=== PATIENT | female | born 1990 | race African-American/Black ===

== ENCOUNTER 2016-10-08 22:56 | Emergency (ER) | payer MEDICAID, OTHER ==
[~2016-10-08 22:56] MED LIST: MACR100C2 PO; PRENTAB44 PO
[2016-10-08 23:30] VITALS: TEMP 97.8
--- NOTE | 2016-10-08 23:50 | PD ---
HPI Chief Complaint spotting Date Seen: Oct 08, 2016 Travel History International Travel<30 Days: No Contact w/Intl Traveler<30Days: No History of Present Illness HPI Patient is a 26 year old at 21-0/7 weeks gestation who presents today for spotting. She noticed several small drops of bright red blood when wiping. She has also had a whitish discharge for the past several weeks but denies any vaginal itching or pain. She denies any gush or leaking of fluid. No contractions or cramping. Positive movement. History Past Medical History Medical History: Denies Significant Hx Obstetric History Obstetric History s/p x 3 Past Surgical History Surgical History: No Previous Surgery Family History Family History: Negative Social History Alcohol Use: No Tobacco Use: No Substance Abuse: No Allergies-Medications (Allergen,Severity, Reaction): Coded Allergies: No Known Allergies (Verified , 07/13/16) Home Meds Active Scripts Nitrofurantoin Monohydrate Macrocrystals (Macrobid)100 Mg Hps169 Mg PO BID 5 Days Ref 0 Prov:Moose Fuchs MD 07/13/16 Reported Medications Multivit-Min W/Fe-FA ( and Iron)1 Tab Tab1 Tab PO DAILY 07/13/16 Review of Systems Except as stated in HPI: all other systems reviewed are Neg General / Constitutional: No: Fever, Chills Eyes: No: Visual changes HENT: No: Headaches Cardiovascular: No: Chest Pain or Discomfort Respiratory: No: Short of Breath Gastrointestinal: No: Nausea, Vomiting, Abdominal Pain Genitourinary: Vaginal Bleeding, No: Pelvic Pain, Discharge Musculoskeletal: No: Edema Psychiatric: No: Substance Abuse Physical Exam Narrative GENERAL: Well-nourished, well-developed patient. SKIN: Warm and dry. HEAD: Normocephalic and atraumatic. EYES: No scleral icterus. No injection or drainage. ENT: No nasal drainage noted. Mucous membranes pink. Airway patent. NECK: Supple, trachea midline. No JVD. CARDIOVASCULAR: Regular rate and rhythm without murmurs, gallops, or rubs. RESPIRATORY: Breath sounds equal bilaterally. No accessory muscle use. ABDOMEN/GI: Abdomen soft, non-tender, bowel sounds present, no rebound, no guarding Gravid to 21 weeks size GENITOURINARY: External Genitalia: intact and normal in appearance BUS glands: wnl Cervix: posterior Dilatation: 0 Effacement: 0 Station: -3 Membranes: intact Uterine Contractions: none Speculum Exam: cervix is closed, pink, no bleeding, greenish yellow, malodorous frothy discharge FHT's: 145 EXTREMITIES: No cyanosis or edema. BACK: Nontender without obvious deformity. No CVA tenderness. NEUROLOGICAL: Awake and alert. Motor and sensory grossly within normal limits. Normal speech. Data Data Vital Signs Reviewed: Yes MDM Medical Record Reviewed: Yes Narrative Course / MDM 26 year old at 21-0/7 weeks gestation. 1. IUP- FHT reassuring, continue routine obstetric care 2. Spotting- physical exam reassuring, wet prep obtained. Suspect spotting is from hemorrhoids. Wet prep negative. Non-specific vaginitis. Will treat with Flagyl 250mg PO Q8H x 7 days based on clinical symptoms and exam findings. vanessa Elliott Diagnosis Diagnosis: Primary Impression: Vaginitis affecting in second trimester, antepartum Disposition: DISCHARGE HOME Condition: Stable Scripts Metronidazole 250 Mg [id number] Mg PO TID #21 TAB Ref 0 Prov:Abby Garcia MD R2 10/09/16 Abby Garcia MD R2 Oct 08, 2016 23:50
[2016-10-09 00:14] VITALS: RESP 18
[2016-10-09] MEDS ORDERED: METR250T15 PO (00:20)
--- NOTE | 2016-10-09 01:08 | PD ---
History of Present Illness Date Seen: Oct 08, 2016 Time Seen: 23:55 History of Present Illness This patient is 26-year-old black female 20 weeks presents complaining of spotting, she denies leakage of amniotic fluid or significant pain. She has noted a vaginal discharge for some time, patient's heart rate is 140s. 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 Impression is nonspecific vaginitis and treated with Flagyl by mouth 250 3 times a day for a week Andrei Elliott II, MD Oct 09, 2016 01:08
== END 2016-10-09 00:41 | disposition home or self-care (01) ==
LOC: HOBED 22:56
DX: O23.592 Infection of other part of genital tract in pregnancy, second trimester (principal); Z3A.21 21 weeks gestation of pregnancy
CPT/HCPCS: 87210; 99284

== ENCOUNTER 2017-02-13 09:12 | Inpatient (IN) | payer MEDICAID ==
[2017-02-13] VITALS (61 sets, daily range): BP systolic 87–127; BP diastolic 47–87; PULSE 69–177; RESP 14–18; TEMP 97.8–99.3; O2SAT 98–100
[~2017-02-13 09:12] MED LIST changes: +METR250T15 PO
[2017-02-13] MEDS ORDERED: LACTATED RINGER'S 1000 ML INJ 1,000 ML IV PRN (10:02)
--- NOTE | 2017-02-13 10:02 | HHI.HP ---
HPI Chief Complaint Complains of contractions and mucous discharge Date Seen: Feb 13, 2017 Travel History International Travel<30 Days: No Contact w/Intl Traveler<30Days: No Known Affected Area: No History of Present Illness HPI This patient is 27-year-old black female at 39 weeks presents complaining of regular painful contractions. Passage of mucous with bloodstained. She thought she may have leaked fluid but her amnio sure is negative. heart rate tracing is reactive she is richard every 3-4 minutes she rates an 8 out of 10. The patient seen Dr. Beavers for care Dr. Khanna is covering today Para: 3 : 4 History Obstetric History Obstetric History 3 vaginal deliveries Social History Alcohol Use: No Tobacco Use: No Substance Abuse: No Allergies-Medications (Allergen,Severity, Reaction): Coded Allergies: No Known Allergies (Verified , 07/13/16) Home Meds Active Scripts Metronidazole 250 Mg Xmg030 Mg PO TID #21 TAB Ref 0 Prov:Abby Garcia MD R2 10/09/16 Nitrofurantoin Monohydrate Macrocrystals (Macrobid)100 Mg [id number] Mg PO BID 5 Days Ref 0 Prov:Moose Fuchs MD 07/13/16 Reported Medications Multivit-Min W/Fe-FA ( and Iron)1 Tab Tab1 Tab PO DAILY 07/13/16 Review of Systems General / Constitutional: No: Fever, Weight Gain, Chills, Other Eyes: No: Diploplia, Blurred Vision, Visual changes, Pain, Photophobia HENT: No: Headaches, Vertigo, Lightheadedness Cardiovascular: No: Irregular Rhythm, Chest Pain or Discomfort, Palpitations, Tachycardia, Syncope, Varicosities, Edema, Cyanosis Respiratory: No: Cough, Short of Breath, Other Gastrointestinal: Abdominal Pain, No: Nausea, Vomiting, Diarrhea Genitourinary: No: Decreased Urinary Output, Oliguria Musculoskeletal: No: Limited ROM, Weakness, Cramping, Edema, Pain Skin: No Rash, No Itching, No Dryness, No Lumps, No Change in Pigmentation, No Change in Nails, No Alopecia, No Lesions Neurologic: No: Weakness, Dizziness, Syncope, Focal Abnormalities, Coordination Problem, Headache, Slurred Speech, Seizures Psychiatric: No: Depression, Suicidal Ideations, Homicidal Ideation Endocrine: No: Heat Intolerance, Cold Intolerance, Polydipsia, Polyuria, Other Physical Exam Narrative GENERAL: Well-nourished, well-developed patient. SKIN: Warm and dry. HEAD: Normocephalic and atraumatic. EYES: No scleral icterus. No injection or drainage. ENT: No nasal drainage noted. Mucous membranes pink. Airway patent. NECK: Supple, trachea midline. No JVD. CARDIOVASCULAR: Regular rate and rhythm without murmurs, gallops, or rubs. RESPIRATORY: Breath sounds equal bilaterally. No accessory muscle use. BREASTS: Bilateral exam showed no masses , no retractions, no nipple discharge. ABDOMEN/GI: Abdomen soft, non-tender, bowel sounds present, no rebound, no guarding Gravid to [39-] weeks size Fundal Height: [39-] GENITOURINARY: External Genitalia: intact and normal in appearance BUS glands: [-] Cervix: [-] Is very posterior with the presenting part of head at about -2 could reach around posteriorly to get the cervical os Dilatation: [4-5-] Effacement: [-50] Station: [-2] Presentation: [-] Membranes: [intact ] amnio sure negative Uterine Contractions: [3-4 minutes-] FHT's: Category: [1-] Baseline: [-133] Reactive: [yes-] Variability: [mod-] Decels: [0-] EXTREMITIES: No cyanosis or edema. BACK: Nontender without obvious deformity. No CVA tenderness. NEUROLOGICAL: Awake and alert. Motor and sensory grossly within normal limits. Five out of 5 muscle strength in all muscle groups. Normal speech. Data Data Labs Amnio sure negative Assessment/Plan Assessment and Plan Patient's 27-year-old black female at 39 weeks followed by the [facility] who presents complaining of regular painful contractions since in the early hours the morning. She passed some bloody mucus as well. She initially thought her fluid may be leaking at that same time but the amnio sure is negative. Patient's cervix is very posterior but is 4-5 cm 50% and the presenting part baby's head is about -2 station but the cervix os is back posteriorly behind that. Because the patient's having regular painful contractions and her cervix is dilated at this point would plan to keep the patient in the hospital and augment labor as needed to effect delivery, this done because we are fearful of a emergent home precipitous delivery if she is sent out of the hospital at this point Andrei Elliott II, MD Feb 13, 2017 10:02
[2017-02-13] MEDS ORDERED: SODIUM CHLORID 0.9% 500 ML INJ 500 ML IV PRN (10:15)
[2017-02-13] MEDS ORDERED: LIDOCAINE HCL 1% 50 ML VIAL INFIL PRN (10:15)
[2017-02-13] MEDS ORDERED: OXYTOCIN 30 UNITS-500ML PREMIX 500 ML IV ONE (10:15)
[2017-02-13] MEDS ORDERED: CITRIC ACID-SODIUM CITRATE LIQ 30 ML UDC PO SCH (10:15)
[2017-02-13] MEDS ORDERED: MINERAL OIL 10 ML VIAL TOPICAL PRN (10:15)
[2017-02-13] MEDS ORDERED: LIDOCAINE HCL 1% 50 ML VIAL I-DERMAL PRN (10:15)
[2017-02-13] MEDS ORDERED: SODIUM CHLOR 0.9% 1000 ML INJ 1,000 ML IV PRN (10:22)
[2017-02-13 10:24] LABS: AUTOMATED NEUTROPHIL # 8.3 TH/MM3 (1.8-7.7); BASOPHIL % 0.3 % (0.0-2.0); EOSINOPHIL # 0.2 TH/MM3 (0-0.4); EOSINOPHIL % 1.4 % (0.0-4.0); HEMATOCRIT 36.1 % (35.0-46.0); HEMO FLAGS DIFF FINAL; LYMPH % 19.3 % (9.0-44.0); LYMPHOCYTE # 2.2 TH/MM3 (1.0-4.8); MEAN CELL VOLUME 96.2 FL (80.0-100.0); MEAN CORPUSCULAR HEMOGLOBIN 31.7 PG (27.0-34.0); MEAN CORPUSCULAR HGB CONC 32.9 % (32.0-36.0); MONO % 6.6 % (0.0-8.0); NEUT % 72.4 % (16.0-70.0); PLATELET COUNT 218 TH/MM3 (150-450); RED BLOOD COUNT 3.76 MIL/MM3 (4.00-5.30); RED CELL DISTRIBUTION WIDTH 13.7 % (11.6-17.2); WHITE BLOOD COUNT 11.5 TH/MM3 (4.0-11.0)
[2017-02-13] MEDS: LACTATED RINGER'S 1000 ML INJ 1,000 ML IV SCH (10:46)
[2017-02-13] MEDS ORDERED: OXYTOCIN 30 UNITS-500ML PREMIX 500 ML IV SCH (12:15)
[2017-02-13] MEDS ORDERED: DO NOT ADMINISTER ANTICOAGULANTS PRN (12:45)
[2017-02-13] MEDS ORDERED: NO SYSTEM NARCOTICS PRN (12:45)
[2017-02-13] MEDS ORDERED: ePHEDrine/NS 25 MG/5 ML SYR IV PRN (12:45)
[2017-02-13 13:02] LABS: BLOOD, URINE NEG (NEG); COMMENT (UR) CULT NOT INDICATED; CULTURE IF INDICATED CULT NOT INDICATED; GLUCOSE,URINE NEG (NEG); KETONE, URINE 40 mg/dL (NEG); MUCUS URINE FEW /lpf (OCC); NITRITE,URINE NEG (NEG); PH, URINE 7.5 (5.0-8.5); URINE COLOR LIGHT-YELLOW (YELLW/STRAW)
[2017-02-13] MEDS ORDERED: fentaNYL 2MCG-BUPIV 0.125% INJ 100 ML ONE (13:20)
[2017-02-13] MEDS ORDERED: fentaNYL 2MCG-BUPIV 0.125% 100 ML EPIDURAL SCH (13:45)
[2017-02-13] MEDS ORDERED: ONDANSETRON ODT 4 MG TAB PO PRN (14:45)
[2017-02-13] MEDS ORDERED: ACETAMINOPHEN 325 MG TAB PO PRN (14:45)
[2017-02-13] MEDS ORDERED: ALUMINUM/MAGNESIUM/SIMETH 30 ML CUP PO PRN (14:45)
[2017-02-13] MEDS ORDERED: SODIUM CHLORIDE 0.9% FLUSH 10 ML FLUSH IV FLUSH PRN (14:45)
[2017-02-13] MEDS ORDERED: BENZOCAINE 20% TOPICAL SPRAY 60 ML CAN TOPICAL PRN (14:45)
[2017-02-13] MEDS ORDERED: ZOLPIDEM TARTRATE 5 MG TAB PO PRN (14:45)
[2017-02-13] MEDS ORDERED: WITCH HAZEL 50%/GLYCERIN 12.5% 40 PAD JAR TOPICAL PRN (14:45)
[2017-02-13] MEDS ORDERED: METHYLERGONOVINE MALEATE 0.2 MG/ML VIAL ONE (15:40)
[2017-02-13] MEDS ORDERED: DIPHTH/TETANUS/ACEL PERTUSSIS (BOOSTER) 0.5 ML VIAL/PFS IM ONE (16:00)
[2017-02-13] MEDS ORDERED: MEASLES, MUMPS, RUBELLA VACCINE 0.5 ML VIAL SQ ONE (16:00)
[2017-02-13] MEDS ORDERED: METHYLERGONOVINE MALEATE 0.2 MG/ML VIAL IM ONE (16:45)
[2017-02-13] MEDS: IBUPROFEN 600 MG TAB PO PRN (18:04)
[2017-02-14] MEDS: IBUPROFEN 600 MG TAB PO PRN ×4 (00:24→21:43)
[2017-02-14] MEDS: DOCUSATE SODIUM 50 MG/SENNA 8.6 MG TAB PO PRN ×2 (00:24→15:21)
--- NOTE | 2017-02-14 07:37 | PD.OB.DELI ---
Anesthesia: Epidural Episiotomy: None Vaginal Delivery: Normal Presentation: Occiput anterior Nuchal Cord: None Delayed cord clamping (45 sec): Yes Infant: Female One Minute : 9 Five Minute : 9 Weight: 6 7 Placenta: Spontaneous delivery Laceration: No lacerations (desires BTL at [place]) Carla Beavers MD Feb 14, 2017 07:37
[2017-02-14 07:40] VITALS: BP 106/58; PULSE 70; RESP 16; TEMP 97.8
--- NOTE | 2017-02-14 08:46 | HHI.OB ---
Subjective Post Day: 1 Remarks no c/o, Objective Vitals/I&O Vital Signs Date Time Temp Pulse Resp B/P Pulse Ox O2 Delivery O2 Flow Rate FiO2 02/13/17 20:00 99.3 80 18 02/13/17 20:00 119/71 02/13/17 17:54 99.0 80 16 121/77 02/13/17 17:15 99 120/81 02/13/17 17:01 75 102/59 02/13/17 16:45 79 109/61 02/13/17 16:15 80 100/75 02/13/17 16:00 82 94/66 02/13/17 15:30 90 110/57 02/13/17 15:16 90 108/67 02/13/17 15:10 18 02/13/17 15:03 98.7 02/13/17 15:00 86 98/68 02/13/17 14:35 98 02/13/17 14:30 95 02/13/17 14:24 16 02/13/17 14:10 91 02/13/17 14:05 92 02/13/17 14:01 91 97/72 02/13/17 14:00 91 02/13/17 13:50 84 02/13/17 13:45 88 02/13/17 13:45 98.2 15 02/13/17 13:45 90 94/60 02/13/17 13:40 90 02/13/17 13:35 88 02/13/17 13:30 85 02/13/17 13:30 83 105/87 02/13/17 13:25 81 02/13/17 13:20 82 02/13/17 13:16 177 97/85 02/13/17 13:15 95 02/13/17 13:10 83 02/13/17 13:05 81 02/13/17 13:01 121 122/64 02/13/17 13:00 88 02/13/17 12:46 110 107/51 02/13/17 12:45 83 02/13/17 12:40 89 02/13/17 12:35 86 02/13/17 12:34 16 02/13/17 12:34 76 109/64 02/13/17 12:33 86 87/53 02/13/17 12:32 84 91/47 02/13/17 12:30 82 02/13/17 12:30 79 90/48 02/13/17 12:20 86 02/13/17 12:15 75 02/13/17 12:15 73 103/63 02/13/17 12:10 79 02/13/17 12:05 81 02/13/17 12:00 97.8 14 02/13/17 12:00 70 101/63 02/13/17 12:00 75 02/13/17 12:00 100 02/13/17 11:55 100 02/13/17 11:55 69 02/13/17 11:50 100 02/13/17 11:50 72 02/13/17 11:45 80 02/13/17 11:45 100 02/13/17 11:45 75 104/75 02/13/17 11:40 71 100 02/13/17 11:35 79 02/13/17 11:35 98 02/13/17 11:30 80 111/65 02/13/17 11:30 99 02/13/17 11:30 78 02/13/17 11:25 100 02/13/17 11:25 76 02/13/17 11:25 76 107/63 02/13/17 11:21 83 02/13/17 11:20 86 02/13/17 11:20 100 02/13/17 11:15 100 02/13/17 11:15 85 102/59 02/13/17 11:15 82 02/13/17 11:10 80 110/56 100 02/13/17 11:10 82 02/13/17 11:05 90 111/72 100 02/13/17 11:05 91 02/13/17 11:01 76 117/69 02/13/17 11:00 100 02/13/17 11:00 91 02/13/17 10:55 100 02/13/17 10:55 89 02/13/17 10:55 84 127/78 02/13/17 10:54 82 125/75 02/13/17 10:42 80 117/65 Objective Remarks GENERAL: Well-nourished, well-developed patient. CARDIOVASCULAR: Regular rate and rhythm without murmurs, gallops, or rubs. RESPIRATORY: Breath sounds equal bilaterally. No accessory muscle use. ABDOMEN/GI: Abdomen soft, non-tender. Fundus: Firm, non-tender at umbilicus. GENITOURINARY: Light to moderate bleeding. EXTREMITIES: No cyanosis or edema, non-tender, without signs of DVT. Medications and IVs Current Medications Medications (Trade) Dose Ordered Sig/Bailey Route Start Time Stop Time Status Last Admin Lactated Ringer's 1,000 ml @ 125 mls/hr Q8H IV 02/13/17 10:02 02/13/17 10:46 Lactated Ringer's 1,000 ml @ 3,000 mls/hr Q20M PRN IV 02/13/17 10:02 02/13/17 10:45 Sodium Chloride 500 ml @ 1,000 mls/hr ONCE PRN IV 02/13/17 10:15 02/14/17 10:14 (NS 1000 ml Inj) 1,000 ml @ 100 mls/hr Q10H PRN IV 02/13/17 10:22 (fentaNYL INJ) 50 mcg Q1H PRN IV PUSH 02/13/17 10:15 (fentaNYL INJ) 100 mcg Q1H PRN IV PUSH 02/13/17 10:15 Mineral Oil 10 ml 10 ml UNSCH PRN TOPICAL 02/13/17 10:15 (Pitocin 30 Units-NS 500 ml Premix) 500 ml @ 0 mls/hr TITRATE IV 02/13/17 12:15 02/13/17 13:13 Miscellaneous Information No systemic narcotics to be given except... UNSCH PRN .XX 02/13/17 12:45 02/14/17 12:44 Miscellaneous Information DO NOT ADMINISTER ANY ANTICOAGUL... UNSCH PRN .XX 02/13/17 12:45 02/14/17 12:44 Ephedrine Sulfate 10 mg 10 mg UNSCH PRN IV 02/13/17 12:45 02/14/17 12:44 (fentaNYL 2MCG-BUPIV 0.125% INJ) 100 ml @ 0 mls/hr TITRATE EPIDURAL 02/13/17 13:45 02/13/17 14:24 (NS Flush) 2 ml BID IV FLUSH 02/13/17 21:00 (NS Flush) 2 ml UNSCH PRN IV FLUSH 02/13/17 14:45 (Tylenol) 650 mg Q4H PRN PO 02/13/17 14:45 (Motrin) 600 mg Q6H PRN PO 02/13/17 14:45 02/14/17 06:44 (Americaine 20% Top Spr) 1 spray Q4H PRN TOPICAL 02/13/17 14:45 (Tucks Pads) 1 applic QID PRN TOPICAL 02/13/17 14:45 (Thea-Colace) 2 tab Q12H PRN PO 02/13/17 14:45 02/14/17 00:24 (Ambien) 5 mg HS PRN PO 02/13/17 14:45 (Mag-Al Plus Susp Liq) 15 ml Q8H PRN PO 02/13/17 14:45 (Zofran Odt) 4 mg Q6H PRN PO 02/13/17 14:45 Assessment/Plan Assessment and Plan s/p PPD #1, female Discharge Planning routine Attending Attestation pt seen by Funmilayo Mejia MD Feb 14, 2017 08:46
[2017-02-14] MEDS: LACTATED RINGER'S 1000 ML INJ 1,000 ML IV SCH ×2 (09:43→18:02)
[2017-02-14] MEDS: SODIUM CHLORIDE 0.9% FLUSH 10 ML FLUSH IV FLUSH SCH (16:26)
[2017-02-14 19:33] VITALS: BP 108/69; PULSE 80; RESP 16; TEMP 98
[2017-02-15] MEDS: IBUPROFEN 600 MG TAB PO PRN ×2 (04:31→12:59)
[2017-02-15] MEDS: DOCUSATE SODIUM 50 MG/SENNA 8.6 MG TAB PO PRN ×2 (04:31→12:59)
[2017-02-15] MEDS ORDERED: IBUP-232 PO (06:53)
--- NOTE | 2017-02-15 06:55 | HHI.DCPOC ---
Discharge Care Plan Diagnosis: (1) (normal spontaneous vaginal delivery) Your Health Problems Are: Vaginal delivery Report Symptoms to Your Doctor -Temperature above 100.5 degrees -Redness, of incision or excessive or foul smelling drainage -Unusual pain or calf pain -Increased vaginal bleeding -Painful or difficulty urinating -Feelings of extreme sadness or anxiety after 2 weeks Goals to Promote Your Health * To prevent worsening of your condition and complications * To maintain your health at the optimal level Directions to Meet Your Goals Take your medications as prescribed Follow your dietary instruction Follow activity as directed Ensure plenty of rest for recovery Drink fluids for hydration Keep your appointments as scheduled Take your immunizations and boosters as scheduled If your symptoms worsen call your PCP, if no PCP go to Urgent Care Center or Emergency Room Smoking is Dangerous to Your Health. Avoid second hand smoke Call the 24-hour crisis hotline for domestic abuse at Mariela Ortega MD Feb 15, 2017 06:55
--- NOTE | 2017-02-15 07:36 | HHI.OB ---
Subjective Post Day: 2 Objective Vitals/I&O Vital Signs Date Time Temp Pulse Resp B/P Pulse Ox O2 Delivery O2 Flow Rate FiO2 02/14/17 19:33 98.0 80 16 02/14/17 19:33 108/69 02/14/17 07:40 97.8 70 16 106/58 Objective Remarks GENERAL: Well-nourished, well-developed patient. CARDIOVASCULAR: Regular rate and rhythm without murmurs, gallops, or rubs. RESPIRATORY: Breath sounds equal bilaterally. No accessory muscle use. ABDOMEN/GI: Abdomen soft, non-tender. Fundus: Firm, non-tender at umbilicus. GENITOURINARY: Light to moderate bleeding. EXTREMITIES: No cyanosis or edema, non-tender, without signs of DVT. Medications and IVs Current Medications Medications (Trade) Dose Ordered Sig/Bailey Route Start Time Stop Time Status Last Admin Lactated Ringer's 1,000 ml @ 125 mls/hr Q8H IV 02/13/17 10:02 02/13/17 10:46 Lactated Ringer's 1,000 ml @ 3,000 mls/hr Q20M PRN IV 02/13/17 10:02 02/13/17 10:45 (NS 1000 ml Inj) 1,000 ml @ 100 mls/hr Q10H PRN IV 02/13/17 10:22 (fentaNYL INJ) 50 mcg Q1H PRN IV PUSH 02/13/17 10:15 (fentaNYL INJ) 100 mcg Q1H PRN IV PUSH 02/13/17 10:15 Mineral Oil 10 ml 10 ml UNSCH PRN TOPICAL 02/13/17 10:15 Oxytocin 500 ml @ 0 mls/hr TITRATE IV 02/13/17 12:15 02/13/17 13:13 (fentaNYL 2MCG-BUPIV 0.125% INJ) 100 ml @ 0 mls/hr TITRATE EPIDURAL 02/13/17 13:45 02/13/17 14:24 (NS Flush) 2 ml BID IV FLUSH 02/13/17 21:00 (NS Flush) 2 ml UNSCH PRN IV FLUSH 02/13/17 14:45 (Tylenol) 650 mg Q4H PRN PO 02/13/17 14:45 (Motrin) 600 mg Q6H PRN PO 02/13/17 14:45 02/15/17 04:31 (Americaine 20% Top Spr) 1 spray Q4H PRN TOPICAL 02/13/17 14:45 (Tucks Pads) 1 applic QID PRN TOPICAL 02/13/17 14:45 (Thea-Colace) 2 tab Q12H PRN PO 02/13/17 14:45 02/15/17 04:31 (Ambien) 5 mg HS PRN PO 02/13/17 14:45 (Mag-Al Plus Susp Liq) 15 ml Q8H PRN PO 02/13/17 14:45 (Zofran Odt) 4 mg Q6H PRN PO 02/13/17 14:45 Assessment/Plan Assessment and Plan s/p PPD #2 routine care d/c to home today Discharge Planning routine Mariela Ortega MD Feb 15, 2017 07:36
[2017-02-15 07:40] VITALS: BP 116/69; PULSE 76; RESP 16; TEMP 98.5
[2017-02-15] MEDS: LACTATED RINGER'S 1000 ML INJ 1,000 ML IV SCH (08:58)
[2017-02-15] MEDS: SODIUM CHLORIDE 0.9% FLUSH 10 ML FLUSH IV FLUSH SCH (08:58)
== END 2017-02-15 13:11 | disposition home or self-care (01) | DRG 775 ==
LOC: HOBED 09:12 → H2EA 10:13 → H1EA 17:43
PROVIDERS: ADMIT Obstetrics & Gynecology; ATTEND Obstetrics & Gynecology
PROC: 10E0XZZ Delivery of Products of Conception, External Approach (ICD-10-PCS; principal; 2017-02-13)
PROC: 00HU33Z Insertion of Infusion Device into Spinal Canal, Percutaneous Approach (ICD-10-PCS; 2017-02-13)
PROC: 3E0R3CZ (ICD-10-PCS; 2017-02-13)
DX: O80 Encounter for full-term uncomplicated delivery (principal); Z37.0 Single live birth; Z3A.39 39 weeks gestation of pregnancy
CPT/HCPCS: 81001; 84112; 85025; 99285; J2210; J2590; J7120

== ENCOUNTER 2017-07-29 10:06 | Emergency (ER) | payer OTHER, MEDICAID ==
[~2017-07-29] VITALS: Ht 172.7 cm; Wt 77.0 kg
[~2017-07-29 10:06] MED LIST changes: +IBUP-232 PO; -METR250T15 PO
[2017-07-29 10:08] VITALS: BP 141/92; PULSE 84; RESP 16; TEMP 98.7; O2SAT 99
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
== END 2017-07-29 11:22 | disposition home or self-care (01) ==
LOC: PHED 10:06
DX: S46.911A Strain of unspecified muscle, fascia and tendon at shoulder and upper arm level, right arm, initial encounter (principal); S39.012A Strain of muscle, fascia and tendon of lower back, initial encounter; V43.52XA Car driver injured in collision with other type car in traffic accident, initial encounter; Y92.488 Other paved roadways as the place of occurrence of the external cause
CPT/HCPCS: 99282

== ENCOUNTER 2018-01-04 01:43 | Emergency (ER) | payer OTHER, MEDICAID ==
[~2018-01-04] VITALS: Ht 172.7 cm; Wt 80.2 kg
[2018-01-04 01:46] VITALS: BP 123/73; PULSE 67; RESP 18; TEMP 98.5; O2SAT 99
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
[2018-01-04] MEDS ORDERED: IBUPROFEN 600 MG TAB PO ONE (02:45)
== END 2018-01-04 03:04 | disposition home or self-care (01) ==
LOC: PHED 01:43
DX: M54.12 Radiculopathy, cervical region (principal)
CPT/HCPCS: 84703; 99283